=== PATIENT | female | born 2000 | race Caucasian/White ===

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

== ENCOUNTER → 2018-10-03 20:00 | Observation (INO) ==
[2018-10-03 19:25] LABS: Bilirubin,Urine Negative (Negative); Blood,Urine Negative (Negative); Clarity,Urine Clear (Clear); Color,Urine Yellow (Yellow); Glucose,Urine (UA) Normal (Normal); Ketones,Urine Negative (Negative); Leukocyte Esterase,Urine Small (Negative); Nitrite,Urine Negative (Negative); PH,Urine 7.5 pH Units (5.0-8.0); Protein,Urine Negative (Neg-Trace); Specific Gravity,Urine 1.025 (1.010-1.025); Urobilinogen,Urine Normal (Normal)
[2018-10-03 19:28] LABS: Bacteria,Urine Few per hpf (None-Few); Hyaline Casts,Urine None Seen per lpf (None-Few); Squamous Epithelial Cell,Urine Many per lpf (None-Few)
[2018-10-03 19:35] LABS: Amphetamine Screen,Urine Negative ng/mL (Cutoff=1000); Barbiturate Screen,Urine Negative ng/mL (Cutoff=200); Benzodiazepines Screen,Urine Negative ng/mL (Cutoff=200); Cannabinoid Screen,Urine Negative ng/mL (Cutoff = 50); Cocaine Screen,Urine Negative ng/mL (Cutoff= 300); Opiate Screen,Urine Negative ng/mL (Cutoff=300); Phencyclidine Screen,Urine Negative ng/mL (Cutoff=25)
== END | disposition home or self-care (01) ==
LOC: 1NENULAB
PROVIDERS: ADMIT Advanced Practice Midwife; ATTEND Advanced Practice Midwife

== ENCOUNTER → 2018-11-17 20:05 | Observation (INO) ==
[2018-11-17 17:29] LABS: Bilirubin,Urine Negative (Negative); Blood,Urine Negative (Negative); Clarity,Urine Cloudy (Clear); Color,Urine Yellow (Yellow); Glucose,Urine (UA) Normal (Normal); Ketones,Urine Negative (Negative); Leukocyte Esterase,Urine Small (Negative); Nitrite,Urine Negative (Negative); PH,Urine 6.5 pH Units (5.0-8.0); Protein,Urine Negative (Neg-Trace); Specific Gravity,Urine 1.025 (1.010-1.025); Urobilinogen,Urine Normal (Normal)
[2018-11-17 17:31] LABS: Bacteria,Urine Many per hpf (None-Few); Hyaline Casts,Urine None Seen per lpf (None-Few); RBC,Urine 0-3 per hpf (0-3); Squamous Epithelial Cell,Urine Many per lpf (None-Few)
[2018-11-17 17:39] LABS: Amphetamine Screen,Urine Negative ng/mL (Cutoff=1000); Barbiturate Screen,Urine Negative ng/mL (Cutoff=200); Benzodiazepines Screen,Urine Negative ng/mL (Cutoff=200); Cannabinoid Screen,Urine Positive ng/mL (Cutoff = 50); Cocaine Screen,Urine Negative ng/mL (Cutoff= 300); Opiate Screen,Urine Negative ng/mL (Cutoff=300); Phencyclidine Screen,Urine Negative ng/mL (Cutoff=25)
--- NOTE | 2018-11-17 19:50 | Discharge Summary ---
Date of Encounter: 11/17/18 Time of Encounter: 19:55 - Discharge Diagnosis (1) 28 weeks gestation of Priority: Primary Status: Acute Comments: Admit to observation for complaint of decreased movement and possible elevated blood pressure. (2) Decreased movement Priority: Secondary Status: Acute Comments: Appropriate heart tones for gestation. Patient is feeling movement while here. Qualifiers: Fetus number: single or unspecified fetus Trimester: third trimester Qualified Code(s): O36.8130 - Decreased movements, third trimester, not applicable or unspecified - Discharge Medications Prescriptions: No Action Tablet 1 tab PO DAILY Albuterol Inhaler PO PRN PRN Reason: Bronchodilation RX: Ferrous Sulfate 325 mg PO DAILY #30 tablet RX: Acetaminophen [Tylenol] 650 mg PO Q6HR PRN tablet PRN Reason: Mild Pain RX: Ibuprofen [Motrin] 600 mg PO Q6HR PRN #30 tablet PRN Reason: Cramping RX: Benzocaine/Menthol [place] [Dermoplast [place]] 1 appl TP QID PRN aerosol PRN Reason: See Comments RX: Docusate [Colace] 100 mg PO BID #60 capsule RX: Lanolin [Lansinoh] 1 appl TP QID PRN oint...g. PRN Reason: Breast Pump [BREAST PUMP] 1 each .ROUTE AD #1 each Sertraline [Zoloft] 25 mg PO DAILY Fexofenadine/Pseudoephedrine [Manasa-D 24 Hour Tablet] 1 each PO Home Medications: Albuterol Inhaler PO PRN 05/01/17 [History] Tablet 1 tab PO DAILY 05/01/17 [History] Breast Pump [BREAST PUMP] 1 each .ROUTE AD #1 each 07/06/17 [Rx] RX: Acetaminophen [Tylenol] 650 mg PO Q6HR PRN tablet 07/06/17 [Rx] RX: Benzocaine/Menthol [place] [Dermoplast [place]] 1 appl TP QID PRN aerosol 07/06/17 [Rx] RX: Docusate [Colace] 100 mg PO BID #60 capsule 07/06/17 [Rx] RX: Ferrous Sulfate 325 mg PO DAILY #30 tablet 07/06/17 [Rx] RX: Ibuprofen [Motrin] 600 mg PO Q6HR PRN #30 tablet 07/06/17 [Rx] RX: Lanolin [Lansinoh] 1 appl TP QID PRN oint...g. 07/06/17 [Rx] Fexofenadine/Pseudoephedrine [Manasa-D 24 Hour Tablet] 1 each PO 11/17/18 [History] Sertraline [Zoloft] 25 mg PO DAILY 11/17/18 [History] Allergies/Adverse Reactions: Allergy/AdvReac Type Severity Reaction Status Date / Time No Known Allergies Allergy Verified 09/30/18 18:11 Data Procedures and tests throughout hospitalization: Laboratory Tests 11/17/18 11/17/18 16:55 17:10 Urine Color Yellow Urine Clarity Cloudy A Urine pH 6.5 Ur Specific [place] 1.025 Urine Protein Negative Urine Glucose (UA) Normal Urine Ketones Negative Urine Blood Negative Urine Nitrite Negative Urine Bilirubin Negative Urine Urobilinogen Normal Ur Leukocyte Esterase Small H Urine Microscopic RBC 0-3 Urine Microscopic WBC 5-15 H Ur Squamous Epith Cells Many H Urine Bacteria Many H Hyaline Casts None Seen Ur Culture Indicated? YES A Urine Opiates Screen Negative Ur Buprenorphine Scrn Negative Ur Barbiturates Screen Negative Ur Phencyclidine Scrn Negative Ur Amphetamines Screen Negative U Benzodiazepines Scrn Negative Urine Cocaine Screen Negative U Marijuana (THC) Screen Positive H Ur Drug Screen Interp See Below Labs on day of discharge: Labs from last 24 hours 11/17/18 11/17/18 17:10 16:55 Urine Color Yellow Urine Clarity Cloudy A Urine pH 6.5 Ur Specific [place] 1.025 Urine Protein Negative Urine Glucose (UA) Normal Urine Ketones Negative Urine Blood Negative Urine Nitrite Negative Urine Bilirubin Negative Urine Urobilinogen Normal Ur Leukocyte Esterase Small H Urine Microscopic RBC 0-3 Urine Microscopic WBC 5-15 H Ur Squamous Epith Cells Many H Urine Bacteria Many H Hyaline Casts None Seen Ur Culture Indicated? YES A Urine Opiates Screen Negative Ur Buprenorphine Scrn Negative Ur Barbiturates Screen Negative Ur Phencyclidine Scrn Negative Ur Amphetamines Screen Negative U Benzodiazepines Scrn Negative Urine Cocaine Screen Negative U Marijuana (THC) Screen Positive H Ur Drug Screen Interp See Below Preliminary micro results at discharge 11/17/18 17:10 Urine Culture - Preliminary Urine,Clean Catch Culture is incubating. Date of admission: 11/17/18 16:29 Discharging clinician: Carmen Young Anticipated date of discharge: 09/25/19 - Patient Status Disposition: Home, Self-Care Condition: Good Functional capacity at discharge: independent ambulation Overall status at discharge: patient is progressing back to baseline - Discharge Instructions Additional Instructions: Follow up with Dr. Gomez as scheduled on Thursday. - Diet and Activity Activity: resume usual activities as tolerated Diet: regular diet Hospital Course [facility] [employer] Hospital course: Patient arrived with complaint of decreased movement and felt her blood pressure was elevated. She denies vaginal bleeding and fluid leakage. She reports feeling movement since she's been here. All of her blood pressures have been normal. She receives her care from Dr. Gomez. All labs returned normal. She is to follow up with Dr. Gomez on Thursday as scheduled for routine care. Time Attestation: Total time spent providing and/or coordinating discharge services: Time Spent: Less than 30 minutes Exam - Constitutional General appearance IM: A&O X 3, no acute distress - Respiratory Respiratory exam: Absent: respiratory distress - Cardiovascular Cardiovascular exam IM: Absent: irregular rhythm - GI/Abdominal GI/Abdominal exam IM: normal bowel sounds Incision: normal, dry, intact - Rectal Rectal exam: deferred - Uterine Tone: Firm - Extremities Exam Extremities exam IM: Absent: calf tenderness - VTE Reasons for not Prescribing Prophylaxis: Treatment not Indicated - Low risk for VTE
[~2018-11-17 20:05] MED LIST changes: -*HR* Nalbuphine 10 MG/ML AMPUL IVP PRN; +FLU Vac QV 19-20 (6Month+)/PF 0.5 ML SYRINGE IM ONE; -Famotidine 20 MG/2 ML VIAL IVP PRN; -Naloxone 0.4 MG/ML INJ IVP PRN; -Ondansetron 4 MG/2 ML VIAL IVP PRN
== END | disposition home or self-care (01) ==
LOC: 1NENULAB
PROVIDERS: ADMIT Registered Nurse; ATTEND Registered Nurse

== ENCOUNTER → 2018-12-15 13:47 | Observation (INO) ==
[2018-12-15 13:12] LABS: Bilirubin,Urine Negative (Negative); Blood,Urine Negative (Negative); Clarity,Urine Clear (Clear); Color,Urine Yellow (Yellow); Glucose,Urine (UA) Normal (Normal); Ketones,Urine Negative (Negative); Leukocyte Esterase,Urine Trace (Negative); Nitrite,Urine Negative (Negative); Protein,Urine Negative (Neg-Trace); Specific Gravity,Urine 1.023 (1.010-1.025); Urobilinogen,Urine Normal (Normal)
[2018-12-15 13:15] LABS: Bacteria,Urine None Seen per hpf (None-Few); Hyaline Casts,Urine None Seen per lpf (None-Few); Squamous Epithelial Cell,Urine Many per lpf (None-Few)
[2018-12-15 13:18] LABS: Amphetamine Screen,Urine Negative ng/mL (Cutoff=1000); Barbiturate Screen,Urine Negative ng/mL (Cutoff=200); Benzodiazepines Screen,Urine Negative ng/mL (Cutoff=200); Cannabinoid Screen,Urine Negative ng/mL (Cutoff = 50); Cocaine Screen,Urine Negative ng/mL (Cutoff= 300); Opiate Screen,Urine Negative ng/mL (Cutoff=300); Phencyclidine Screen,Urine Negative ng/mL (Cutoff=25)
[2018-12-15 13:36] LABS: Transitional Epi Cells,Urine Few per hpf (None-Few)
[2018-12-15 13:37] LABS: RBC,Urine 0-3 per hpf (0-3); Renal Epithelial Cells,Urine Few per hpf (None-Few)
== END | disposition home or self-care (01) ==
LOC: 1NENULAB
PROVIDERS: ADMIT Registered Nurse; ATTEND Registered Nurse